=== PATIENT | male | born 1980 | race Caucasian/White ===

== ENCOUNTER 2016-06-25 11:55 | Emergency (ER) | payer OTHER ==
[~2016-06-25] VITALS: Ht 172.7 cm; Wt 77.1 kg
[~2016-06-25 11:55] MED LIST: ALBUTEROL0.09 MG/A1 INH
--- NOTE | 2016-06-25 12:34 | ED GENERAL ADULT ---
History of Present Illness General Chief Complaint: Hand or Wrist Injury Stated Complaint: L WRIST PAIN Source: patient Exam Limitations: no limitations Vital Signs & Intake/Output Vital Signs & Intake/Output Vital Signs Date Time Temp Pulse Resp B/P Pulse O2 O2 Flow FiO2 Ox Delivery Rate 06/25 1630 98.6 93 16 101/55 99 Room Air 06/25 1523 99.6 72 16 104/50 ED Intake and Output 06/26 0000 06/25 1200 Intake Total Output Total Balance Patient 170 lb Weight Triage Note: 36 Y/O MALE C/O L WRIST PAIN/SWELLING X 2 DAYS; NO KNOWN INJURIES OR TRAUMA PER PT. PT HAS SIGNIFICANT SWELLING TO HAND AND WRIST WITH RED AREA NOTED TO OUTER WRIST. Triage Nurses Notes Reviewed? yes HPI: This is a 36-year-old gentleman presented to the emergency department with chief complaint of left wrist pain and swelling started 2 days ago. Patient complaint of severe worsening left wrist pain, 10 out of 10, sharp, nonradiating started 2 days ago and it has been worsening since then. Pain is associated with swelling of wrist, redness, warmth and tender to touch. Unable to move his wrist. Painful on flexion and extension. Not associated with any fever or chills. Not associated with any injury or trauma. No tick bites, wound or drainages. No source of infection found. Denies any chest pain, short of breath, racing of heart, nausea, vomiting, abdominal pain, change in bladder or bowel habits. offnote he is a iv drug abuser. (SILVINO MACKEY,[facility]) Allergies Coded Allergies: NO KNOWN ALLERGIES (06/25/16) Reconcile Medications Cephalexin (Keflex) 500 MG CAPSULE 1 CAP PO TID INFECTION Sulfamethoxazole/Trimethoprim (Bactrim Ds Tablet) 800 MG-160 MG TABLET 1 TAB PO BID CELLULITIS Onset: Abrupt Duration: day(s): (2) Timing: recent history Injury Environment: home Severity: moderate Associated Symptoms: SWELLING, ERYTHEMA, PAIN HPI: Patient admits to injecting heroin into the same area of redness last week. (TRAVIS MACKEY,[facility]) Past History Travel History Traveled to [place] past 21 day No Medical History Any Pertinent Medical History? 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 Yes (NATHAN DUBOIS MD) Review of Systems Review of Systems Constitutional: Denies: chills, diaphoresis, fever, malaise, weakness, unexplained weight loss. EENTM: Denies: visual changes, hearing changes. Respiratory: Denies: cough, short of breath, sputum production, stridor, wheezing. Cardiovascular: Denies: chest pain, edema, orthopena, palpitations, peripheral edema, syncope. GI: Denies: abdominal pain, nausea, vomiting. Musculoskeletal: Denies: back pain, joint pain. Skin: Reports: erythema. (NATHAN DUBOIS MD) Review of Systems Neurological/Psychological: Denies: confusion. Hematologic/Endocrine: Denies: bruising, bleeding, polyuria, polydipsia. Immunologic/Allergic: Denies: splenectomy. (DAVID ROBLES MD) Physical Exam Physical Exam General Appearance: well developed/nourished Head: atraumatic, normal appearance Eyes: Bilateral: normal appearance. Respiratory: normal breath sounds Cardiovascular: regular rate/rhythm Gastrointestinal: normal bowel sounds, soft, non-tender Skin: left wrist swollen, red, warmth, tender to touch, painful, limited range of motion Core Measures ACS in differential dx? No CVA/TIA Diagnosis: No Severe Sepsis Present: No Septic Shock Present: No (NATHAN DUBOIS MD) Physical Exam Ears, Nose, Throat: hearing grossly normal Neck: normal inspection, supple, full range of motion Peripheral Pulses: 2+ radial (R), 2+ radial (L) Extremities: LEFT ARM ERYTHEMA, EDEMA, WARMTH Neurologic/Psych: no motor/sensory deficits, awake, alert, oriented x 3 Diagram Body: 1) ERYTHEMA, EDEMA (DAVID ROBLES MD) Progress Differential Diagnoses I considered the following diagnoses in my evaluation of the patient: cellulitis , wrist fracture, dvt, thrombhophlebitis, wrist injury. Plan of Care: Orders Procedure Date/time Status BLOOD CULTURE 06/25 1316 Active Laboratory Tests 06/25/16 1328: Anion Gap 9, Estimated GFR > 60, BUN/Creatinine Ratio 10.0, CBC w Diff NO MAN DIFF REQ, RBC 4.24 L, MCV 89.1, MCH 30.5, RDW 12.5, MPV 7.5, Gran % 69.0, Lymphocytes % 20.9, Monocytes % 9.9 H, Eosinophils % 0, Basophils % 0.2, Absolute Granulocytes 9.1 H, Absolute Lymphocytes 2.8, Absolute Monocytes 1.3 H, Absolute Eosinophils 0, Absolute Basophils 0, PUBS MCHC 34.2 Microbiology 06/25 1431 BLOOD: Blood Culture - RECD 06/25 1425 BLOOD: Blood Culture - RECD iv unasyn, vanco given. imaging unremarkable. patient feels improved, less swollen. He will return tomorrow or go to [place] for reevaluation tomorrow. (TRAVIS MACKEY,DAVID) Initial ED EKG: normal axis, none, normal intervals, normal p-waves, normal QRS complex, normal sinus rhythm (SILVINO MACKEY,NATHAN) Differential Diagnoses I considered the following diagnoses in my evaluation of the patient: [HEROIN ABUSE Diagnostic Imaging: Viewed by Me: Radiology Read, Ultrasound. Discussed w/RAD: Radiology Read, Ultrasound. Radiology Impression: PATIENT: AMARIS DAVISON PRESENT AGE: 36 PATIENT ACCOUNT NO: [id number] : 79 LOCATION: [facility] ORDERING PHYSICIAN: NATHAN DUBOIS MD SERVICE DATE: 06/25/16 EXAM TYPE: RAD - XRY-WRIST COMPLETE-LEFT EXAMINATION: XR WRIST, LEFT CLINICAL INFORMATION: Left wrist pain and swelling COMPARISON: None. TECHNIQUE: Left wrist, 4 views FINDINGS: There is soft tissue swelling at the dorsal and ulnar aspect of the wrist and hand. The pronator quadratus fat stripe is maintained. The distal radius, ulna and radioulnar joint are intact. The carpal joint spaces are normal. There is no osseous erosion, carpal bone fracture or subluxation. There appears to be a small subchondral cyst of the ulnar epiphysis. IMPRESSION: 1. No acute osseous injury. 2. Nonspecific soft tissue swelling at the dorsal and ulnar aspect of the distal forearm, wrist and hand. DICTATED BY: MARIANNA MARIANO MD DATE/TIME DICTATED:06/25/161321 CHANNEL SALES DIRECTOR:DIMA DATE/TIME TRANSCRIBED:06/25/161321 CONFIDENTIAL, DO NOT COPY WITHOUT APPROPRIATE AUTHORIZATION. <Electronically signed in Other Vendor System> SIGNED BY: MARIANNA MARIANO MD 06/25/16 1329, PATIENT: AMARIS DAVISON PRESENT AGE: 36 PATIENT ACCOUNT NO: [id number] : 79 LOCATION: [facility] ORDERING PHYSICIAN: NATHAN DUBOIS MD SERVICE DATE: 06/25/16 EXAM TYPE: US - US-UNILATERAL VENOUS DOPPLER EXAMINATION: US TRIPLEX UPPER EXTREMITY, LEFT CLINICAL INFORMATION: Left upper extremity pain and swelling after intravenous injection. COMPARISON: No relevant prior imaging is available. TECHNIQUE: Color-flow triplex imaging with spectral analysis and compression Doppler were performed on the left upper extremity. FINDINGS: The left internal jugular vein, subclavian vein, axillary vein, brachial vein, basilic vein, cephalic vein, ulnar vein, and radial vein are patent with normal compressibility and flow. A palpable nodule in the region of the left mid cephalic vein demonstrates imaging characteristics most compatible with a lymph node measuring 1.3 cm in long axis. IMPRESSION: No evidence of venous thrombus within the left upper extremity. A palpable 1.3 cm nodule within the superficial subcutaneous tissues is most consistent with a lymph node. DICTATED BY: PEREZ PARHAM MD DATE/TIME DICTATED:06/25/161423 CHANNEL SALES DIRECTOR:DIMA DATE /TIME TRANSCRIBED:06/25/161423 CONFIDENTIAL, DO NOT COPY WITHOUT APPROPRIATE AUTHORIZATION. <Electronically signed in Other Vendor System> SIGNED BY: PEREZ PARHAM MD 06/25/16 1433 (DAVID ROBLES MD) Departure Departure Condition: Stable Referrals: PATIENT HAS NO PRIMARY CARE DR (PCP/Family) (NATHAN DUBOIS MD) Departure Time of Disposition: 1434 Disposition: HOME OR SELF CARE Clinical Impression Primary Impression: Cellulitis of left hand Additional Instructions: Take the Bactrim and Keflex as directed. Take ibuprofen or Tylenol as needed for pain. Please return tomorrow for reevaluation of the infection in your hand. Departure Forms: Customer Survey General Discharge Information Prescriptions: Current Visit Scripts Sulfamethoxazole/Trimethoprim (Bactrim Ds Tablet) 1 TAB PO BID #20 TAB Cephalexin (Keflex) 1 CAP PO TID #30 CAP Resident Co-Sign Statement Statement: ED Attending supervision documentation- [X] I saw and evaluated the patient. I have also reviewed all the pertinent lab results and diagnostic results. I agree with the findings and the plan of care as documented in the Resident's documentation. [X] I have reviewed the ED Record and agree with the Resident's documentation. [] Additions or exceptions (if any) to the Resident's note and plan are summarized below: [] (TRAVIS MACKEY,DAVID) Critical Care Note Critical Care Note Critical Care Time: 30-74 min (SILVINO MACKEY,[facility])
--- NOTE | 2016-06-25 13:29 | RADIOLOGY REPORT ---
EXAMINATION: XR WRIST, LEFT CLINICAL INFORMATION: Left wrist pain and swelling COMPARISON: None. TECHNIQUE: Left wrist, 4 views FINDINGS: There is soft tissue swelling at the dorsal and ulnar aspect of the wrist and hand. The pronator quadratus fat stripe is maintained. The distal radius, ulna and radioulnar joint are intact. The carpal joint spaces are normal. There is no osseous erosion, carpal bone fracture or subluxation. There appears to be a small subchondral cyst of the ulnar epiphysis. IMPRESSION: 1. No acute osseous injury. 2. Nonspecific soft tissue swelling at the dorsal and ulnar aspect of the distal forearm, wrist and hand.
[2016-06-25 13:31] LABS: ABSOLUTE BASOPHIL COUNT 0 /CUMM (0.0-0.2); ABSOLUTE EOSINOPHIL COUNT 0 /CUMM (0.0-0.7); ABSOLUTE GRANULOCYTE CT 9.1 /CUMM (1.4-6.5); ABSOLUTE LYMPH COUNT 2.8 /CUMM (1.2-3.4); ABSOLUTE MONOCYTE COUNT 1.3 /CUMM (0.10-0.60); BASOPHIL % 0.2 % (0.0-2.0); EOSINOPHIL % 0 % (0-5); HEMATOCRIT 37.8 % (42-52); MEAN CORPUSCULAR HGB 30.5 PG (27.0-31.0); MEAN CORPUSCULAR HGB CONC 34.2 G/DL (33.0-37.0); MEAN CORPUSCULAR VOLUME 89.1 FL (80.0-94.0); MEAN PLATELET VOLUME 7.5 FL (7.4-10.4); PLATELET COUNT 241 /CUMM (130-400); RBC DISTRIBUTION WIDTH 12.5 % (11.5-14.5); RED BLOOD CELL CT 4.24 /CUMM (4.70-6.10); WHITE BLOOD CELL COUNT 13.2 /CUMM (4.8-10.8)
--- NOTE | 2016-06-25 14:33 | ULTRASOUND REPORT ---
EXAMINATION: US TRIPLEX UPPER EXTREMITY, LEFT CLINICAL INFORMATION: Left upper extremity pain and swelling after intravenous injection. COMPARISON: No relevant prior imaging is available. TECHNIQUE: Color-flow triplex imaging with spectral analysis and compression Doppler were performed on the left upper extremity. FINDINGS: The left internal jugular vein, subclavian vein, axillary vein, brachial vein, basilic vein, cephalic vein, ulnar vein, and radial vein are patent with normal compressibility and flow. A palpable nodule in the region of the left mid cephalic vein demonstrates imaging characteristics most compatible with a lymph node measuring 1.3 cm in long axis. IMPRESSION: No evidence of venous thrombus within the left upper extremity. A palpable 1.3 cm nodule within the superficial subcutaneous tissues is most consistent with a lymph node.
[2016-06-25] MEDS ORDERED: KEFLEX500 M1 PO (14:37)
[2016-06-25] MEDS ORDERED: BACTRIM DS TAB1 EACH PO (14:37)
[2016-06-25 16:30] VITALS: BP 101/55
== END 2016-06-25 17:22 ==
LOC: ERH 11:55
DX: L03.114 Cellulitis of left upper limb (principal)
CPT/HCPCS: 73110-LT; 82436; 87040; 96365; 96366; 96375; J1885; J3370